=== PATIENT | male | born 1955 | race Caucasian/White ===

== ENCOUNTER 2020-12-14 11:09 | Inpatient (IN) ==
[2020-12-14] MEDS ORDERED: IOPAMIDOL 100 ML BOTTLE IV ONE ×2 (11:10→16:35)
--- NOTE | 2020-12-14 11:29 | Emergency Department Note ---
SOB HPI General Chief Complaint: Shortness of Breath/Dyspnea Stated Complaint: shortness of breath, left rib pain Time Seen by Provider: 12/14/20 11:18 Source: patient, family, RN notes reviewed and old records reviewed Mode of arrival: wheelchair Limitations: no limitations History of Present Illness HPI Narrative: Narrative: MD Complaint: shortness of breath and chest pain Onset (ago): day(s) (4) Context: other (Patient has CLL and is on an experimental chemotherapy) Severity: severe Consistency/Duration: intermittent Improves with: rest Worsens with: lying flat, exertion and movement Known history of: other (CLL) Associated symptoms: Reports chest pain, pain with inspiration, orthopnea, palpitations and nausea/vomiting; Denies fever, cough, wheezing, sputum production, lower extremity pain, polyuria, polydipsia, parasthesias, carpopedal spasm, hemoptysis, diaphoresis, syncope, abdominal pain, rash and sense of impending doom Treatment prior to arrival: none Related Data Home oxygen amount: none Allergies Allergy/AdvReac Type Severity Reaction Status Date / Time No Known Drug Allergies Allergy Verified 12/14/20 11:14 Review of Systems ROS ROS Narrative: Narrative: All systems ED: reviewed and negative except as stated. PFS Narrative Patient History Narrative: Narrative: Medical/Surgical/Family History All Active Problems (Updated 12/14/20 @ 14:02 by Richard Oneil MD) Pneumonia (Acute) Hypoxia (Acute) Chronic lymphocytic leukemia (Acute) Social History Smoking Status: Never smoker Exam Narrative Narrative: Narrative: General Limitations: no limitations General appearance: Present alert and in no apparent distress Head Head: Present atraumatic and normocephalic Eye Eye: Present normal appearance, PERRL and EOMI ENT ENT: Present normal exam and mucous membranes moist Neck Neck: Present normal inspection and full ROM Chest Chest: Present normal inspection; Absent tenderness Respiratory Respiratory: Present decreased breath sounds; Absent respiratory distress Cardiovascular Cardiovascular: Present regular rate and normal rhythm; Absent systolic murmur Adbominal Abdominal: Present soft; Absent distention, tenderness, guarding and rebound Extremities Extremities: Present normal inspection and full ROM; Absent tenderness, pedal edema and pretibial edema Back Back: Present normal inspection; Absent CVA tenderness (R) and CVA tenderness (L) Neurological Neurological: Present alert and oriented X3 Psychiatric Psychiatric: Present normal affect and normal mood Skin Skin: Present warm (WNL); Absent rash Course Vital Signs Vital signs: Vital Signs Temperature 99.4 F H 12/14/20 11:10 Pulse Rate 88 12/14/20 11:10 Respiratory Rate 24 H 12/14/20 11:10 Blood Pressure 175/95 12/14/20 11:10 Pulse Oximetry (%) 85 L 12/14/20 11:10 Temperature 99.4 F H 12/14/20 11:10 Pulse Rate 87 12/14/20 12:46 Respiratory Rate 18 12/14/20 12:31 Blood Pressure 165/102 12/14/20 12:46 Pulse Oximetry (%) 90 12/14/20 12:46 MDM MDM Narrative Medical decision making narrative: Narrative: 65-year-old male with CLL shortness of breath and chest wall pain. Patient has 177.79 WBCs a creatinine normal for receiving IV normal saline the patient received azithromycin and Rocephin after blood cultures and will be admitted for right lower lobe pneumonia. Medical Records Medical records reviewed: Yes I reviewed the patient's medical records. Lab Data Lab results reviewed: Yes I reviewed the patient's lab results. Result diagrams: 12/14/20 11:38 12/14/20 11:38 Labs: Lab Results 12/14/20 12/14/20 12/14/20 Range/Units 11:38 11:38 11:38 WBC 177.7 H* (4.5-11.0) K/mcL RBC 3.83 L (4.50-5.90) M/mcL Hgb 11.6 L (13.5-16.5) g/dL Hct 33.8 L (41.0-55.0) % MCV 88.3 (80.0-100.0) fL MCH 30.3 (26.0-34.0) pg MCHC 34.3 (31.0-36.0) g/dL RDW 17.2 H (11.5-14.5) % Plt Count 58 L (140-440) K/mcL MPV (7.4-10.4) fL Neut % (Auto) 3.0 L (38.0-78.0) % Lymph % (Auto) 96.0 H (15.0-49.0) % Barber % (Auto) 0 L (1.0-12.0) % Eos % (Auto) 0 (0.0-7.0) % Baso % (Auto) 0 (0.0-2.0) % Lymph # (Auto) (1.50-4.80) K/mcL Barber # (Auto) (0.10-0.90) K/mcL Eos # (Auto) (0.00-0.70) K/mcL Baso # (Auto) (0.00-0.20) K/mcL Absolute Neutrophils (1.80-8.00) K/mcL PT 17.9 H (11.9-14.5) sec INR 1.4 H (0.9-1.1) D-Dimer > 20.0 H (0.27-0.5) ug/mL Sodium 139 (133-145) mmol/L Potassium 3.2 L (3.3-5.1) mmol/L Chloride 101 (96-108) mmol/L Carbon Dioxide 25 (22-30) mmol/L Anion Gap 13.0 (8.0-16.0) BUN 8 (8-23) mg/dL Creatinine 1.4 H (0.7-1.2) mg/dL GFR Calculation 51 Glucose 144 H (70-105) mg/dL Calcium 10.3 (8.6-10.4) mg/dL Total Bilirubin 1.2 H (0.1-1.0) mg/dL AST 104 H (<40) U/L ALT 96 H (<40) U/L Alkaline Phosphatase 230 H (39-117) U/L Troponin T (<0.03) ng/mL NT-Pro-B Natriuret Pep 273.1 H (<125.0) pg/mL Total Protein 6.3 (5.9-8.4) gm/dL Albumin 4.4 (3.2-5.2) gm/dL Globulin 1.9 L (2.2-3.7) gm/dL Albumin/Globulin Ratio 2.3 (1.0-2.3) 12/14/ Range/Units 11:38 WBC (4.5-11.0) K/mcL RBC (4.50-5.90) M/mcL Hgb (13.5-16.5) g/dL Hct (41.0-55.0) % MCV (80.0-100.0) fL MCH (26.0-34.0) pg MCHC (31.0-36.0) g/dL RDW (11.5-14.5) % Plt Count (140-440) K/mcL MPV (7.4-10.4) fL Neut % (Auto) (38.0-78.0) % Lymph % (Auto) (15.0-49.0) % Barber % (Auto) (1.0-12.0) % Eos % (Auto) (0.0-7.0) % Baso % (Auto) (0.0-2.0) % Lymph # (Auto) (1.50-4.80) K/mcL Barber # (Auto) (0.10-0.90) K/mcL Eos # (Auto) (0.00-0.70) K/mcL Baso # (Auto) (0.00-0.20) K/mcL Absolute Neutrophils (1.80-8.00) K/mcL PT (11.9-14.5) sec INR (0.9-1.1) D-Dimer (0.27-0.5) ug/mL Sodium (133-145) mmol/L Potassium (3.3-5.1) mmol/L Chloride (96-108) mmol/L Carbon Dioxide (22-30) mmol/L Anion Gap (8.0-16.0) BUN (8-23) mg/dL Creatinine (0.7-1.2) mg/dL GFR Calculation Glucose (70-105) mg/dL Calcium (8.6-10.4) mg/dL Total Bilirubin (0.1-1.0) mg/dL AST (<40) U/L ALT (<40) U/L Alkaline Phosphatase (39-117) U/L Troponin T 0.02 (<0.03) ng/mL NT-Pro-B Natriuret Pep (<125.0) pg/mL Total Protein (5.9-8.4) gm/dL Albumin (3.2-5.2) gm/dL Globulin (2.2-3.7) gm/dL Albumin/Globulin Ratio (1.0-2.3) ED POC Tests ED POC Tests: RENEE - SARS Antigen Negative Radiology Data Radiology results reviewed: Yes I reviewed the patient's radiology results. Radiology results narrative: Chest CT shows right lower lobe infiltrate EKG Data EKG #1: EKG attestation: Yes I reviewed and interpreted this EKG. EKG shows normal: sinus rhythm Rate: normal (87) Rhythm: NSR Jamison/QRS: normal Heart block present: None ST segment elevation in: None ST segment depression in: None Q waves: None T wave inversions noted in: None Hyperacute T waves: None QTc: normal QRS morphology: Present normal Interpretation: normal EKG Pulse Oximetry Data Pulse Ox %: 85 Interpretation: Hypoxia on room air Discharge Plan Patient/Caregiver Discharge Instructions Pt seen by [employer]/PA only: No Clinical Impression: Hypoxia, Chronic lymphocytic leukemia Pneumonia Qualifiers: Pneumonia type: due to unspecified organism Laterality: right Lung location: lower lobe of lung Qualified Code(s): J18.9 - Pneumonia, unspecified organism Patient Disposition: Xfer As Inpt ([facility]) Condition: Fair Follow up with: Provider,Other [Primary Care Provider] -
--- NOTE | 2020-12-14 12:28 | XRay Report ---
INDICATION: dyspnea TECHNIQUE: AP portable upright chest x-ray COMPARISON: None FINDINGS: Lungs:Lungs are negative. No focal pulmonary parenchymal infiltrate or mass Heart, vascular:No significant cardiomegaly. Pulmonary vascularity is normal. No pulmonary edema or pulmonary congestion Mediastinum, saige:No mediastinal widening. No hilar mass Pleura:No pleural fluid. No pleural-based mass or calcification Skeletal:Negative. IMPRESSION: Negative AP chest x-ray Interpreted and Authenticated by: Mg Carlson 12/14/20
[2020-12-14 12:38] LABS: ALT/SGPT 96 U/L (<40); AST/SGOT 104 U/L (<40); Albumin 4.4 gm/dL (3.2-5.2); Albumin/Globulin Ratio 2.3 (1.0-2.3); Alkaline Phosphatase 230 U/L (39-117); Bilirubin,Total 1.2 mg/dL (0.1-1.0); Blood Urea Nitrogen 8 mg/dL (8-23); Calcium 10.3 mg/dL (8.6-10.4); Carbon Dioxide 25 mmol/L (22-30); Chloride 101 mmol/L (96-108); Globulin 1.9 gm/dL (2.2-3.7); Glomerular Filtration Rate 51; Glucose 144 mg/dL (70-105)
[2020-12-14 12:53] LABS: proBNP 273.1 pg/mL (<125.0)
[2020-12-14 13:09] LABS: Basophils % (Auto) 0 % (0.0-2.0); Eosinophils % (Auto) 0 % (0.0-7.0); Hematocrit 33.8 % (41.0-55.0); Hemoglobin 11.6 g/dL (13.5-16.5); Mean Cell Volume 88.3 fL (80.0-100.0); Mean Corpuscular HGB Conc 34.3 g/dL (31.0-36.0); Monocytes % (Auto) 0 % (1.0-12.0); Red Cell Distribution Width 17.2 % (11.5-14.5); WBC 177.7 K/mcL (4.5-11.0)
[2020-12-14 13:10] LABS: Platelet Count 58 K/mcL (140-440)
[2020-12-14 13:11] LABS: RBC 3.83 M/mcL (4.50-5.90)
[2020-12-14 13:14] LABS: INR 1.4 (0.9-1.1); Prothrombin Time 17.9 sec (11.9-14.5)
--- NOTE | 2020-12-14 13:24 | Cat Scan Report ---
INDICATION: Chest pain x 1 week COMPARISON: Chest x-ray dated 12/14/2020 TECHNIQUE: Axial images obtained through the chest. 60ml Isovue 370 injected intravenously, and scanning was performed during pulmonary arterial phase. Sagittally and coronally reformatted images were obtained. MIP reformatted images. FINDINGS: Lungs:There is right lower lobe infiltrate. This is within the azygoesophageal recess. Findings are consistent with pneumonia. There is no focal pulmonary parenchymal mass. There is mild bibasilar density consistent with dependent atelectasis. Mediastinum, vascular:Main pulmonary artery, right pulmonary artery, left pulmonary artery are negative. No intraluminal filling defects. No lobar, segmental, or subsegmental emboli. Thoracic aorta is negative. No aneurysmal dilatation No pathologic mediastinal or hilar adenopathy Heart:No cardiomegaly. No pericardial effusion. Pleura:No significant pleural effusion. No pleural mass or calcification Axilla, supraclavicular regions, chest wall:Bilateral axillary lymph nodes. These appear physiologic on the left. These are indeterminate on the right. Largest right axillary lymph node measures 18 mm. Musculoskeletal:No thoracic compression fractures. Sternum and ribs are negative Upper Abdomen:There is splenomegaly. Spleen measures 16 cm in AP dimension. Craniocaudal dimension is not measured as entire spleen is not included on this examination. There is a 13 mm low-density abnormality in the upper pole of the spleen. This is nonspecific. Hematologic malignancy is possible IMPRESSION: 1. Negative pulmonary CTA 2. Right lower lobe infiltrate within the azygoesophageal recess 3. Nonspecific right axillary lymph nodes. 4. Splenomegaly. Low density lesion in the upper pole of the spleen The exam was performed using radiation dose optimization techniques including, but not limited to, automated exposure control, adjustment of the mA and/or kV according to patient size and use of iterative reconstruction technique. Interpreted and Authenticated by: Mg Carlson 12/14/20
[2020-12-14] MEDS ORDERED: AZITHROMYCIN 500 MG in DEXTROSE 5% IN WATER 250 ML IV ONE (13:53)
[2020-12-14] MEDS ORDERED: cefTRIAXone 1 GM VIAL IV ONE (13:53)
[2020-12-14] MEDS ORDERED: morphine 4 MG/ML VIAL IV ONE (13:59)
[2020-12-14] MEDS ORDERED: ONDANSETRON 4 MG/2 ML VIAL IV ONE (13:59)
[2020-12-14] MEDS ORDERED: guaiFENesin/DEXTROMETHORPHAN ORAL SOL PO PRN ×2 (15:25→16:35)
[2020-12-14] MEDS ORDERED: 0.9 % SODIUM CHLORIDE 2,000 ML IV ONE (15:30)
--- NOTE | 2020-12-14 15:36 | Internal Med History&Physical ---
HPI History of Present Illness Patient information: Note initiated : 12/14/20 at 3:30 pm Service Date, if different from initiated Date: [] Patient: Adonay Hdez 65 y/o M admitted on for shortness of breath, left rib pain. Chief Complaint: [shortness of breath] History of present illness: Mr. Hdez is a 65 year old M history of CLL and essential hypertension presenting with 4-day history of shortness of breath. Last episode of pneumonia was 1 and half years ago. Patient denies any recent travel or sick contact. Over the past 4 days, patient has gradual onset, gradually worsening shortness of breath. Patient have known productive cough. Patient is also committing of respiratory wheezings. Patient denies any fever or shaking chills. Patient is committing of general body weakness as well as decreased appetite over the same period of time. Patient is also coming off left upper quadrant abdominal pain, mild to moderate, with radiations to the left upper back. Denies any alleviating or exacerbating factors. Constitutional Constitutional: Present fatigue and weakness; Absent chills, excessive sweating and fever(s) EENT Eyes: Absent blurry vision, change in vision, loss of vision and other visual disturbances Ears: Absent decreased hearing and tinnitus Nose, mouth and throat: Absent abnormal hearing, dry mouth, headache(s), nasal congestion and sore throat Cardiovascular Cardiovascular: Absent chest pain, chest pain at rest, edema, irregular heart rhythm and palpatations Respiratory Respiratory: Present cough, dyspnea and wheezing; Absent excessive phlegm production Gastrointestinal Gastrointestinal: Absent abdominal pain, constipation, diarrhea, nausea and vomiting Musculoskeletal Musculoskeletal: Absent back pain, deformity, limited range of motion, muscle cramps, muscle weakness and numbness Integumentary Integumentary: Absent lesions, rash and wounds Neurological Neurological: Absent focal weakness, headache(s) and numbness Psychiatric Psychiatric: Absent anxiety, depression and hallucinations PFSH PFSH All Active Problems (Updated 12/14/20 @ 15:46 by Ranjit Hathaway MD) Stage 1 acute kidney injury (Acute) Anemia, normocytic normochromic (Acute) Lesion of spleen (Acute) Essential (primary) hypertension (Acute) Pneumonia (Acute) Hypoxia (Acute) Chronic lymphocytic leukemia (Acute) MEDS/ALLERGIES Home Medications and Allergies Allergies Allergy/AdvReac Type Severity Reaction Status Date / Time No Known Drug Allergies Allergy Verified 12/14/20 11:14 EXAM Constitutional Vitals: Temp Pulse Resp BP Pulse Ox 37.4 C H 95 H 19 141/82 90 12/14/20 11:10 12/14/20 14:16 12/14/20 14:22 12/14/20 14:16 12/14/20 14:16 General appearance: cooperative and no acute distress Head Head exam: Present atraumatic and normocephalic Eye Eye exam: Present EOMI and PERRL ENT ENT exam: Present mucous membranes moist, normal exam and normal external ear exam Neck Neck exam: Present normal inspection; Absent lymphadenopathy, tenderness and thyromegaly Respiratory Respiratory exam: Present decreased breath sounds and respiratory distress; Absent accessory muscle use and wheezes Cardiovascular Cardiovascular exam: Present normal rate and rhythm; Absent JVD GI/Abdominal GI/Abdominal exam: Present normal bowel sounds, soft and tenderness; Absent organomegaly Rectal Rectal exam: Present deferred Extremities Exam Extremities exam: Present full ROM, normal capillary refill and normal inspection; Absent tenderness Neurological Exam Neurological exam: Present alert, CN II-XII intact and oriented X3; Absent motor sensory deficit Psychiatric Psychiatric exam: Present normal affect and normal mood; Absent anxious and depressed Skin Skin exam: Present dry and intact DATA Data Completed and Pending Labs: Labs from last 24 hours 12/14/20 12/14/20 12/14/20 14:30 11:38 11:38 WBC RBC Hgb Hct MCV MCH MCHC RDW Plt Count MPV Neut % (Auto) Lymph % (Auto) Pitt % (Auto) Eos % (Auto) Baso % (Auto) Lymph # (Auto) Pitt # (Auto) Eos # (Auto) Baso # (Auto) Absolute Neutrophils PT INR D-Dimer VBG Lactic Acid Pending Sodium 139 Potassium 3.2 L Chloride 101 Carbon Dioxide 25 Anion Gap 13.0 BUN 8 Creatinine 1.4 H GFR Calculation 51 Glucose 144 H Calcium 10.3 Total Bilirubin 1.2 H AST 104 H ALT 96 H Alkaline Phosphatase 230 H Troponin T 0.02 NT-Pro-B Natriuret Pep 273.1 H Total Protein 6.3 Albumin 4.4 Globulin 1.9 L Albumin/Globulin Ratio 2.3 12/14/20 12/14/20 11:38 11:38 WBC 177.7 H* RBC 3.83 L Hgb 11.6 L Hct 33.8 L MCV 88.3 MCH 30.3 MCHC 34.3 RDW 17.2 H Plt Count 58 L MPV Neut % (Auto) 3.0 L Lymph % (Auto) 96.0 H Pitt % (Auto) 0 L Eos % (Auto) 0 Baso % (Auto) 0 Lymph # (Auto) Pitt # (Auto) Eos # (Auto) Baso # (Auto) Absolute Neutrophils PT 17.9 H INR 1.4 H D-Dimer > 20.0 H VBG Lactic Acid Sodium Potassium Chloride Carbon Dioxide Anion Gap BUN Creatinine GFR Calculation Glucose Calcium Total Bilirubin AST ALT Alkaline Phosphatase Troponin T NT-Pro-B Natriuret Pep Total Protein Albumin Globulin Albumin/Globulin Ratio A/P Assessment and plan (1) Chronic lymphocytic leukemia: Status: Acute (2) Pneumonia: Status: Acute Qualifiers: Laterality: right Lung location: lower lobe of lung Pneumonia type: due to unspecified organism Qualified Code(s): J18.9 - Pneumonia, unspecified organism (3) Hypoxia: Status: Acute (4) Essential (primary) hypertension: Status: Acute (5) Lesion of spleen: Status: Acute (6) Anemia, normocytic normochromic: Status: Acute (7) Stage 1 acute kidney injury: Status: Acute Narrative A/P Narrative: Assessment and Plans: 1. Right lower lobe pneumonia, community acquired: Admit to inpatient med surg telemetry CoVID PCR test to rule out commitment CoVID pneumonia. 2L NS bolus Procalcitonin Serial lactic acid Blood culture X2 Supplemental oxygen via nasal cannula titrate to achieve >=92% sp02 cbc w./ auto diff in the AM to trend WBC Rocephin Zithromax Tylenol PRN fever Robitussin DM PRN cough 2. h/o CLL: Verify and continue chemotherapy 3. Splenomegaly and spleen lesion: As visualized by CT angiogram of the chest f/u MRI abdomen w/ contrast to better delineate the lesion Ibuprofen PRN mild pain Oxycodone PRN moderate pain Morphine IV PRN severe pain 4. anemia, normocytic normochromic: Likely associated with h/o CLL, see #2 cbc w/ auto diff in the AM, trend H/H; transfuse pRBC if hemoglobin <7.0, active bleeding, or symptomatic 5. h/o essential HTN: Currently hypertensive Resume oral antihypertensives from home regimen 6. Stage 1 Acute kidney injury: 2L NS bolus in the ED Avoid nephrotoxic agents Repeat CMP in the AM to trend kidney functions GI ppx: not currently indicated DVT ppx: SCDs Code status: Full Prognosis: guarded Disposition: inpatient med surg telemetry Time Spent With Patient Time: Total time spent is greater than 50% in coordination of care (as documented) at patient's floor/unit and/or counseling patient: Total time spent with greater than 50% in coordination of care (as documented) at patient's floor/unit and/or counseling patient:: 25 - 35 minutes
[2020-12-14] MEDS ORDERED: oxyCODONE HCL 5 MG TABLET PO PRN (16:35)
[2020-12-14] MEDS ORDERED: IPRATROPIUM/ALBUTEROL 3 ML AMPUL.NEB NEB PRN (16:35)
[2020-12-14] MEDS ORDERED: IBUPROFEN 600 MG TABLET PO PRN (16:35)
[2020-12-14] MEDS ORDERED: AZITHROMYCIN 500 MG in DEXTROSE 5% IN WATER 250 ML IV SCH (16:35)
[2020-12-14] MEDS ORDERED: ACETAMINOPHEN 325 MG TABLET PO PRN (16:35)
[2020-12-14] MEDS ORDERED: cefTRIAXone 1 GM in DEXTROSE 5% IN WATER 50 ML IV SCH (16:35)
[2020-12-14] MEDS ORDERED: ONDANSETRON 4 MG/2 ML VIAL IV PRN (16:35)
[2020-12-14] MEDS ORDERED: morphine 4 MG/ML VIAL IV PRN (16:35)
[2020-12-14] MEDS ORDERED: traZODone HCL 50 MG TABLET PO PRN (16:35)
--- NOTE | 2020-12-14 17:17 | EKG ---
[facility] Test Date: 2020-12-14 Pat Name: Adonay Hdez Department: ED Room: Gender: Male [employer]: : 1955 Requested By: Richard Oneil Order Number: [id number] Reading MD: Yunior Yu M.D. Measurements Intervals Temperance Rate: 87 P: 53 MS: 144 QRS: 2 QRSD: 87 T: 50 QT: 365 QTc: 439 Interpretive Statements Sinus rhythm NO PRIOR TRACING FOR COMPARISON NORMAL TRACING Electronically Signed On 12-14-2020 17:17:23 PDT by Yunior Yu M.D. /store/[email or web address]/[id number]
[2020-12-14] MEDS: 0.9 % SODIUM CHLORIDE 1,000 ML IV SCH (18:20)
[2020-12-14] MEDS: 0.9 % SODIUM CHLORIDE 10 ML SYRINGE IV SCH (20:12)
[2020-12-14] MEDS: DOCUSATE SODIUM 100 MG CAPSULE PO SCH (20:12)
[2020-12-14] MEDS: SENNOSIDES 1 TABLET PO SCH (20:12)
[2020-12-14] MEDS ORDERED: NON FORMULARY MEDICATION 1 DOSE MISCELL PO SCH (21:00)
[2020-12-15] MEDS: 0.9 % SODIUM CHLORIDE 1,000 ML IV SCH ×5 (02:27→22:00)
[2020-12-15] MEDS: 0.9 % SODIUM CHLORIDE 10 ML SYRINGE IV SCH ×3 (05:46→20:33)
[2020-12-15 08:25] LABS: Basophils # (Auto) 0 K/mcL (0.00-0.20); Basophils % (Auto) 0 % (0.0-2.0); Hematocrit 29.7 % (41.0-55.0); Hemoglobin 9.9 g/dL (13.5-16.5); Mean Cell Volume 90.8 fL (80.0-100.0); Mean Corpuscular HGB Conc 33.3 g/dL (31.0-36.0); Platelet Count 49 K/mcL (140-440); RBC 3.27 M/mcL (4.50-5.90); Red Cell Distribution Width 17.8 % (11.5-14.5); WBC 240.3 K/mcL (4.5-11.0)
[2020-12-15 08:41] LABS: ALT/SGPT 81 U/L (<40); AST/SGOT 87 U/L (<40); Albumin 3.8 gm/dL (3.2-5.2); Albumin/Globulin Ratio 2.1 (1.0-2.3); Alkaline Phosphatase 190 U/L (39-117); Bilirubin,Total 1.3 mg/dL (0.1-1.0); Blood Urea Nitrogen 8 mg/dL (8-23); Calcium 9.6 mg/dL (8.6-10.4); Carbon Dioxide 29 mmol/L (22-30); Chloride 105 mmol/L (96-108); Globulin 1.8 gm/dL (2.2-3.7); Glomerular Filtration Rate 51; Glucose 109 mg/dL (70-105)
[2020-12-15] MEDS ORDERED: AZITHROMYCIN 500 MG in DEXTROSE 5% IN WATER 250 ML IV SCH (09:00)
[2020-12-15] MEDS ORDERED: cefTRIAXone 1 GM VIAL IV SCH (09:00)
[2020-12-15] MEDS: ZANUBRUTINIB 80 MG PO SCH ×2 (09:09→20:30)
[2020-12-15] MEDS ORDERED: MAGNESIUM SULFATE 8.12 MEQ/2 ML VIAL IV ONE (10:06)
[2020-12-15] MEDS ORDERED: ACYCLOVIR 400 MG TABLET PO PRN (10:07)
--- NOTE | 2020-12-15 10:17 | Internal Med Progress Note ---
SUBJECTIVE Subjective Patient information: Note initiated : 12/15/20 at 10:09 am Service Date, if different from initiated Date: [] Patient: Adonay Hdez a 65 y/o M admitted on 12/14/20 for shortness of breath, left rib pain. Chief Complaint: [shortness of breath] History of present illness: Mr. Hdez is a 65 year old M history of CLL and essential hypertension presenting with 4-day history of shortness of breath. Last episode of pneumonia was 1 and half years ago. Patient denies any recent travel or sick contact. Over the past 4 days, patient has gradual onset, gradually worsening shortness of breath. Patient have known productive cough. Patient is also committing of respiratory wheezings. Patient denies any fever or shaking chills. Patient is committing of general body weakness as well as decreased appetite over the same period of time. Patient is also coming off left upper quadrant abdominal pain, mild to moderate, with radiations to the left upper back. Denies any alleviating or exacerbating factors. 12/15/20: Afebrile overnight. Blood cultures no growth to date. CoVID PCR negative. Improving SOB. Productive cough with govea sputum with blood tinge. Denies fever or chills. Mild general body weakness. Constitutional Vitals: Vital Signs Temp Pulse Resp BP Pulse Ox 37.2 C 103 H 16 153/84 91 12/15/20 06:59 12/15/20 06:59 12/15/20 06:59 12/15/20 06:59 12/15/20 09:13 Period Temp Pulse Resp BP Sys/Nice Pulse Ox Last 24 Hr 36.3 C-37.4 C 86-103 14-24 124-177/68-114 85-94 Intake and Output 12/14/20 12/15/20 12/15/20 21:59 05:59 13:59 Intake Total 1223 1000 Balance 1223 1000 Weight 113.988 kg Intake & Output: Intake & Output 12/14/20 12/15/20 12/15/20 21:59 05:59 13:59 Intake Total 1223 1000 Balance 1223 1000 Weight 113.988 kg Intake: IV 983 1000 Sodium Chloride 0.9% 1,000 ml @ 733 1000 100 mls/hr IV .Q10H [facility] Rx#: [id number] Zithromax 500 mg In Dextrose 5% 250 in Water 250 ml @ 250 mls/hr IV ONCE ONE Rx#:[id number] Oral 240 Other: Meal Dinner Percent of Meal Consumed 75% Feeding Ability Assist with Tray Set Up # Voids 1 General appearance: cooperative and no acute distress Head Head exam: Present atraumatic and normocephalic Eye Eye exam: Present EOMI and PERRL ENT ENT exam: Present mucous membranes moist, normal exam and normal external ear exam Additional comments: Nasal cannula in place. Neck Neck exam: Present normal inspection; Absent lymphadenopathy, tenderness and thyromegaly Respiratory Respiratory exam: Present rhonchi; Absent accessory muscle use, respiratory distress and wheezes Cardiovascular Cardiovascular exam: Present normal rate and rhythm; Absent JVD GI/Abdominal GI/Abdominal exam: Present normal bowel sounds and soft; Absent organomegaly and tenderness Rectal Rectal exam: Present deferred Extremities Exam Extremities exam: Present full ROM, normal capillary refill and normal inspection; Absent tenderness Neurological Exam Neurological exam: Present alert, CN II-XII intact and oriented X3; Absent motor sensory deficit Psychiatric Psychiatric exam: Present normal affect and normal mood; Absent anxious and depressed Skin Skin exam: Present dry and intact OBJ DATA Labs CBC & Chem 7: 12/15/20 05:04 12/15/20 05:04 Labs: Abnormal Lab Results 12/15/20 12/15/20 12/14/20 05:04 05:04 11:38 WBC 240.3 H* RBC 3.27 L Hgb 9.9 L Hct 29.7 L RDW 17.8 H Plt Count 49 L* Neut % (Auto) 2.0 L Lymph % (Auto) 96.0 H [place] % (Auto) Lymph # (Auto) 230.70 H [place] # (Auto) 2.40 H Eos # (Auto) 2.40 H PT INR D-Dimer Potassium 2.0 L* Creatinine 1.4 H Glucose 109 H Magnesium 1.5 L Total Bilirubin 1.3 H AST 87 H ALT 81 H Alkaline Phosphatase 190 H NT-Pro-B Natriuret Pep Total Protein 5.6 L Globulin 1.8 L Procalcitonin 0.46 H 12/14/20 12/14/20 12/14/20 11:38 11:38 11:38 WBC 177.7 H* RBC 3.83 L Hgb 11.6 L Hct 33.8 L RDW 17.2 H Plt Count 58 L Neut % (Auto) 3.0 L Lymph % (Auto) 96.0 H [place] % (Auto) 0 L Lymph # (Auto) [place] # (Auto) Eos # (Auto) PT 17.9 H INR 1.4 H D-Dimer > 20.0 H Potassium 3.2 L Creatinine 1.4 H Glucose 144 H Magnesium Total Bilirubin 1.2 H AST 104 H ALT 96 H Alkaline Phosphatase 230 H NT-Pro-B Natriuret Pep 273.1 H Total Protein Globulin 1.9 L Procalcitonin Meds: Medications Acetaminophen (Acetaminophen 325 Mg Tablet) 650 mg PO Q6HP PRN; Protocol PRN Reason: Per Pain Protocol/Fever > 101 Acyclovir (Acyclovir 400 Mg Tablet) 400 mg PO TID PRN; Protocol PRN Reason: Cold Sores Albuterol/Ipratropium (Ipratropium/Albuterol 3 Ml Ampul.Neb) 3 ml NEB Q4HRT PRN PRN Reason: Wheezing Allopurinol (Allopurinol 300 Mg Tablet) 300 mg PO DAILY MICHAEL Ceftriaxone Sodium (Ceftriaxone 1 Gm Vial) 1 gm IV DAILY MICHAEL; Protocol Docusate Sodium (Docusate Sodium 100 Mg Capsule) 100 mg PO BID MICHAEL Last Admin: 12/14/20 20:12 Dose: Not Given Documented by: Finasteride (Finasteride 5 Mg Tablet) 5 mg PO QDAY MICHAEL Guaifenesin (Guaifenesin/Dextromethorphan Oral Kelli) 10 ml PO Q4HP PRN PRN Reason: Cough Azithromycin 500 mg/ Dextrose 250 mls @ 250 mls/hr IV DAILY MICHAEL; Protocol Stop: 12/16/20 09:59 Sodium Chloride (Sodium Chloride 0.9%) 1,000 mls @ 100 mls/hr IV .Q10H MICHAEL Last Admin: 12/15/20 04:28 Dose: 100 mls/hr Documented by: Potassium Chloride 40 meq/ (Dextrose) 520 mls @ 130 mls/hr IV ONCE ONE Stop: 12/15/20 14:59 Magnesium Sulfate 8.12 meq/ (Dextrose) 52 mls @ 52 mls/hr IV ONCE ONE Stop: 12/15/20 11:59 Ibuprofen (Ibuprofen 600 Mg Tablet) 600 mg PO QIDP PRN; Protocol PRN Reason: Per Pain Protocol/Fever > 101 Last Admin: 12/14/20 23:14 Dose: 600 mg Documented by: Morphine Sulfate (Morphine 4 Mg/Ml Vial) 4 mg IV Q4HP PRN; Protocol PRN Reason: Per Pain Protocol Non-Formulary Medication (Lisinopril) 40 mg PO DAILY [facility] Non-Formulary Medication (Zanubrutinib) 160 mg PO BID [facility] Ondansetron HCl (Ondansetron 4 Mg/2 Ml Vial) 4 mg IV Q6HP PRN PRN Reason: Nausea And Vomiting Oxycodone HCl (Oxycodone Hcl 5 Mg Tablet) 5 mg PO Q4HP PRN; Protocol PRN Reason: Per Pain Protocol Zanubrutinib 80 Mg (Capsule) 1 dose PO BID [facility] Last Admin: 12/15/20 09:09 Dose: 1 dose Documented by: Senna (Sennosides 1 Tablet) 2 tab PO HS [facility] Last Admin: 12/14/20 20:12 Dose: Not Given Documented by: Sodium Chloride (0.9 % Sodium Chloride 10 Ml Syringe) 10 ml IV Q8 [facility] Last Admin: 12/15/20 05:46 Dose: Not Given Documented by: Trazodone HCl (Trazodone Hcl 50 Mg Tablet) 50 mg PO HSP PRN PRN Reason: Insomnia A/P Assessment and plan (1) Chronic lymphocytic leukemia: Status: Acute (2) Hypoxia: Status: Acute (3) Pneumonia: Status: Acute Qualifiers: Laterality: right Lung location: lower lobe of lung Pneumonia type: due to unspecified organism Qualified Code(s): J18.9 - Pneumonia, unspecified organism (4) Essential (primary) hypertension: Status: Acute (5) Lesion of spleen: Status: Acute (6) Anemia, normocytic normochromic: Status: Acute (7) Stage 1 acute kidney injury: Status: Acute (8) Hypokalemia: Status: Acute (9) Hypomagnesemia: Status: Acute Narrative A/P Narrative: 1. Right lower lobe pneumonia, community acquired: Admit to inpatient med surg telemetry CoVID PCR NEGATIVE 2L NS bolus Procalcitonin 0.46 elevated, suggesting underlying active infection, likely pneumonia Serial lactic acid Blood culture X2, no growth to date Supplemental oxygen via nasal cannula titrate to achieve >=92% sp02 cbc w./ auto diff in the AM to trend WBC Rocephin Zithromax Tylenol PRN fever Robitussin DM PRN cough 2. h/o CLL: Verify and continue chemotherapy Zanubrutinib Will talk to oncologist regarding treatment of CLL in face of acute infection 3. Splenomegaly and spleen lesion: As visualized by CT angiogram of the chest f/u MRI abdomen w/ contrast to better delineate the lesion Ibuprofen PRN mild pain Oxycodone PRN moderate pain Morphine IV PRN severe pain 4. anemia, normocytic normochromic: Likely associated with h/o CLL, see #2 cbc w/ auto diff in the AM, trend H/H; transfuse pRBC if hemoglobin <7.0, active bleeding, or symptomatic 5. h/o essential HTN: Currently hypertensive Resume oral antihypertensives from home regimen 6. Stage 1 Acute kidney injury: 2L NS bolus in the ED Avoid nephrotoxic agents Repeat CMP in the AM to trend kidney functions 7. Hypokalemia/hypomagnesemia: Potassium and Magnesium IV replacement Repeat serum potassium level this afternoon Repeat CMP and serum Mg level every morning and repeat replacement as needed GI ppx: not currently indicated DVT ppx: SCDs Code status: Full Prognosis: guarded Disposition: inpatient med surg telemetry Time Spent With Patient Time: Total time spent is greater than 50% in coordination of care (as documented) at patient's floor/unit and/or counseling patient: Total time spent with greater than 50% in coordination of care (as documented) at patient's floor/unit and/or counseling patient:: 15 - 24 minutes QUALITY VTE Deep Vein Thrombosis/Pulmonary Embolism Present on Admission: No
[2020-12-15] MEDS ORDERED: POTASSIUM CHLORIDE 40 MEQ in DEXTROSE 5% IN WATER 500 ML IV ONE (11:00)
[2020-12-15] MEDS ORDERED: MAGNESIUM SULFATE 8.12 MEQ in DEXTROSE 5% IN WATER 50 ML IV ONE (11:00)
[2020-12-15] MEDS ORDERED: LISINOPRIL 20 MG TABLET PO ONE (12:38)
[2020-12-15] MEDS ORDERED: ALLOPURINOL 300 MG TABLET PO ONE (12:38)
[2020-12-15] MEDS: DOCUSATE SODIUM 100 MG CAPSULE PO SCH ×2 (14:37→20:30)
[2020-12-15] MEDS: SENNOSIDES 1 TABLET PO SCH ×2 (14:39→20:30)
[2020-12-15] MEDS ORDERED: POLYETHYLENE GLYCOL 3350 17 GM PACKET PO PRN (20:03)
[2020-12-15] MEDS ORDERED: ZANUBRUTINIB 80 MG PO SCH (21:00)
[2020-12-16] MEDS: 0.9 % SODIUM CHLORIDE 10 ML SYRINGE IV SCH (04:51)
[2020-12-16] MEDS: 0.9 % SODIUM CHLORIDE 1,000 ML IV SCH (04:51)
--- NOTE | 2020-12-16 07:35 | XRay Report ---
INDICATION: r/o PNA vs fluid overload TECHNIQUE: AP portable semiupright chest x-ray COMPARISON: Previous chest x-ray dated 12/14/2020. Previous CT scan dated 12/14/2020 FINDINGS: Lungs:No pulmonary parenchymal consolidation. No pulmonary parenchymal mass. CT scan demonstrated a focal infiltrate in the right lower lobe which is not apparent on plain radiograph. Pneumonia remains possible Heart, vascular:There is mild cardiomegaly. Pulmonary vascularity is prominent. There is peribronchial thickening. Findings may be due to interstitial pulmonary edema. Mediastinum, saige:No mediastinal widening. No hilar mass Pleura:No pleural fluid. No pleural-based mass or calcification Skeletal:Negative. IMPRESSION: 1. Mild cardiomegaly. Prominent vascularity and possible interstitial edema 2. No parenchymal consolidation Interpreted and Authenticated by: Mg Carlson 12/16/20
[2020-12-16] MEDS ORDERED: VANCOMYCIN PER PHARMACY IV SCH ×2 (07:37→08:10)
[2020-12-16] MEDS ORDERED: PIPERACILLIN SODIUM/TAZOBACTAM 3.375 GM in DEXTROSE 5% IN WATER 50 ML IV SCH (07:45)
--- NOTE | 2020-12-16 07:57 | Internal Med Progress Note ---
SUBJECTIVE Subjective Patient information: Note initiated : 12/16/20 at 7:56 am Service Date, if different from initiated Date: [] Patient: Adonay Hdez 65 y/o M admitted on 12/14/20 for shortness of breath, left rib pain. Chief Complaint: [shortness of breath] History of present illness: Mr. Hdez is a 65 year old M history of CLL and essential hypertension presenting with 4-day history of shortness of breath. Last episode of pneumonia was 1 and half years ago. Patient denies any recent travel or sick contact. Over the past 4 days, patient has gradual onset, gradually worsening shortness of breath. Patient have known productive cough. Patient is also committing of respiratory wheezings. Patient denies any fever or shaking chills. Patient is committing of general body weakness as well as decreased appetite over the same period of time. Patient is also coming off left upper quadrant abdominal pain, mild to moderate, with radiations to the left upper back. Denies any alleviating or exacerbating factors. 12/15/20: Afebrile overnight. Blood cultures no growth to date. CoVID PCR negative. Improving SOB. Productive cough with govea sputum with blood tinge. Denies fever or chills. Mild general body weakness. 12/16: Afebrile overnight. Blood cultures no growth to date. Patient is showing increased work of breathing. Diaphoresis. Showing abdominal breathing pattern. Subjective not obtained due to clinical situations. Constitutional Vitals: Vital Signs Temp Pulse Resp BP Pulse Ox 36.4 C 108 H 22 167/86 92 12/16/20 06:56 12/16/20 06:56 12/16/20 06:56 12/16/20 06:56 12/16/20 06:56 Period Temp Pulse Resp BP Sys/Nice Pulse Ox Last 24 Hr 36.4 C-37.3 C 96-112 16-24 142-167/75-99 90-92 Intake and Output 12/15/20 12/16/20 12/16/20 21:59 05:59 13:59 Intake Total 1971 1276 Output Total 300 Balance 1672 1277 Weight 116.12 kg Intake & Output: Intake & Output 12/15/20 12/16/20 12/16/20 21:59 05:59 13:59 Intake Total 1971 1277 Output Total 300 Balance 1672 1277 Weight 116.12 kg Intake: IV 1572 977 Sodium Chloride 0.9% 1,000 ml @ 1000 977 100 mls/hr IV .Q10H [facility] Rx#: [id number] Magnesium Sulfate 8.12 Meq In 52 Dextrose 5% in Water 50 ml @ 52 mls/hr IV ONCE ONE Rx#: [id number] Potassium Chloride 40 Meq In 520 Dextrose 5% in Water 500 ml @ 130 mls/hr IV ONCE ONE Rx#: [id number] Oral 400 300 Output: Void Amount 300 Other: Meal Lunch Percent of Meal Consumed 100% Feeding Ability Independent General appearance: cooperative and severe distress Head Head exam: Present atraumatic and normocephalic Eye Eye exam: Present EOMI and PERRL ENT ENT exam: Present mucous membranes moist, normal exam and normal external ear exam Additional comments: High flow oxygen in place. Neck Neck exam: Present normal inspection; Absent lymphadenopathy, tenderness and thyromegaly Respiratory Respiratory exam: Absent accessory muscle use, respiratory distress and wheezes Additional comments: Crackles in bilateral lung apexes Abdominal breathing pattern Cardiovascular Cardiovascular exam: Present normal rate and rhythm; Absent JVD GI/Abdominal GI/Abdominal exam: Present normal bowel sounds and soft; Absent organomegaly and tenderness Additional comments: Abdominal breathing pattern Rectal Rectal exam: Present deferred Extremities Exam Extremities exam: Present full ROM, normal capillary refill and normal inspection; Absent tenderness Neurological Exam Neurological exam: Present alert, CN II-XII intact and oriented X3; Absent motor sensory deficit Psychiatric Psychiatric exam: Present normal affect and normal mood; Absent anxious and depressed Skin Skin exam: Present intact Additional comments: wet skin OBJ DATA Labs CBC & Chem 7: 12/15/20 05:04 12/15/20 17:00 Labs: Abnormal Lab Results 12/15/20 12/15/20 12/15/20 17:00 05:04 05:04 WBC 240.3 H* RBC 3.27 L Hgb 9.9 L Hct 29.7 L RDW 17.8 H Plt Count 49 L* Neut % (Auto) 2.0 L Lymph % (Auto) 96.0 H [place] % (Auto) Lymph # (Auto) 230.70 H [place] # (Auto) 2.40 H Eos # (Auto) 2.40 H PT INR D-Dimer Potassium 1.8 L* 2.0 L* Creatinine 1.4 H Glucose 109 H Magnesium 1.5 L Total Bilirubin 1.3 H AST 87 H ALT 81 H Alkaline Phosphatase 190 H NT-Pro-B Natriuret Pep Total Protein 5.6 L Globulin 1.8 L Procalcitonin 12/14/20 12/14/20 12/14/20 11:38 11:38 11:38 WBC RBC Hgb Hct RDW Plt Count Neut % (Auto) Lymph % (Auto) [place] % (Auto) Lymph # (Auto) [place] # (Auto) Eos # (Auto) PT 17.9 H INR 1.4 H D-Dimer > 20.0 H Potassium 3.2 L Creatinine 1.4 H Glucose 144 H Magnesium Total Bilirubin 1.2 H AST 104 H ALT 96 H Alkaline Phosphatase 230 H NT-Pro-B Natriuret Pep 273.1 H Total Protein Globulin 1.9 L Procalcitonin 0.46 H 12/14/20 11:38 WBC 177.7 H* RBC 3.83 L Hgb 11.6 L Hct 33.8 L RDW 17.2 H Plt Count 58 L Neut % (Auto) 3.0 L Lymph % (Auto) 96.0 H [place] % (Auto) 0 L Lymph # (Auto) [place] # (Auto) Eos # (Auto) PT INR D-Dimer Potassium Creatinine Glucose Magnesium Total Bilirubin AST ALT Alkaline Phosphatase NT-Pro-B Natriuret Pep Total Protein Globulin Procalcitonin Meds: Medications Acetaminophen (Acetaminophen 325 Mg Tablet) 650 mg PO Q6HP PRN; Protocol PRN Reason: Per Pain Protocol/Fever > 101 Last Admin: 12/15/20 21:57 Dose: 650 mg Documented by: Acyclovir (Acyclovir 400 Mg Tablet) 400 mg PO TIDP PRN; Protocol PRN Reason: Cold Sores Albuterol/Ipratropium (Ipratropium/Albuterol 3 Ml Ampul.Neb) 3 ml NEB Q4HRT PRN PRN Reason: Wheezing Allopurinol (Allopurinol 300 Mg Tablet) 300 mg PO DAILY MICHAEL Ceftriaxone Sodium (Ceftriaxone 1 Gm Vial) 1 gm IV DAILY MICHAEL; Protocol Last Admin: 12/15/20 10:18 Dose: 1 gm Documented by: Docusate Sodium (Docusate Sodium 100 Mg Capsule) 100 mg PO BID MICHAEL Last Admin: 12/15/20 20:30 Dose: 100 mg Documented by: Finasteride (Finasteride 5 Mg Tablet) 5 mg PO QDAY [facility] Guaifenesin (Guaifenesin/Dextromethorphan Oral Kelli) 10 ml PO Q4HP PRN PRN Reason: Cough Azithromycin 500 mg/ Dextrose 250 mls @ 250 mls/hr IV DAILY [facility]; Protocol Stop: 12/16/20 09:59 Last Infusion: 12/15/20 11:20 Dose: Infused Documented by: Piperacillin Sod/Tazobactam (Sod 3.375 gm/ Dextrose) 50 mls @ 100 mls/hr IV Q6H [facility]; Protocol Ibuprofen (Ibuprofen 600 Mg Tablet) 600 mg PO QIDP PRN; Protocol PRN Reason: Per Pain Protocol/Fever > 101 Last Admin: 12/14/20 23:14 Dose: 600 mg Documented by: Lisinopril (Lisinopril 20 Mg Tablet) 40 mg PO DAILY [facility] Morphine Sulfate (Morphine 4 Mg/Ml Vial) 4 mg IV Q4HP PRN; Protocol PRN Reason: Per Pain Protocol Ondansetron HCl (Ondansetron 4 Mg/2 Ml Vial) 4 mg IV Q6HP PRN PRN Reason: Nausea And Vomiting Oxycodone HCl (Oxycodone Hcl 5 Mg Tablet) 5 mg PO Q4HP PRN; Protocol PRN Reason: Per Pain Protocol Zanubrutinib 80 Mg (Capsule) 1 dose PO BID [facility] Last Admin: 12/15/20 20:30 Dose: 1 dose Documented by: Polyethylene Glycol (Polyethylene Glycol 3350 17 Gm Packet) 17 gm PO DAILYP PRN PRN Reason: Constipation Last Admin: 12/15/20 20:31 Dose: 17 gm Documented by: Senna (Sennosides 1 Tablet) 2 tab PO HS [facility] Last Admin: 12/15/20 20:30 Dose: 2 tab Documented by: Sodium Chloride (0.9 % Sodium Chloride 10 Ml Syringe) 10 ml IV Q8 [facility] Last Admin: 12/16/20 04:51 Dose: 10 ml Documented by: Trazodone HCl (Trazodone Hcl 50 Mg Tablet) 50 mg PO HSP PRN PRN Reason: Insomnia Vancomycin HCl (Vancomycin Per Pharmacy) 1 order IV UD [facility]; Protocol A/P Assessment and plan (1) Chronic lymphocytic leukemia: Status: Acute (2) Hypoxia: Status: Acute (3) Pneumonia: Status: Acute Qualifiers: Laterality: right Lung location: lower lobe of lung Pneumonia type: due to unspecified organism Qualified Code(s): J18.9 - Pneumonia, unspecified organism (4) Essential (primary) hypertension: Status: Acute (5) Lesion of spleen: Status: Acute (6) Anemia, normocytic normochromic: Status: Acute (7) Stage 1 acute kidney injury: Status: Acute (8) Hypokalemia: Status: Acute (9) Hypomagnesemia: Status: Acute Narrative A/P Narrative: 1. Right lower lobe pneumonia, community acquired: Transfer to inpatient ICU CoVID PCR NEGATIVE Switch to BiPAP ABG 30min after the switch to BiPAP CT angiogram chest to rule out pulmonary embolism given history of CLL Procalcitonin 0.46 elevated, suggesting underlying active infection, likely pneumonia Serial lactic acid Blood culture X2, no growth to date Sputum culture cbc w./ auto diff in the AM to trend WBC d/c Rocephin d/c Zithromax Start Vancomycin Start Zosyn Tylenol PRN fever Robitussin DM PRN cough Saline lock, given the fact that CXR shows vascular congestion and possible pulmonary edema 2. h/o CLL: Verify and continue chemotherapy Zanubrutinib Will talk to oncologist regarding treatment of CLL in face of acute infection 3. Splenomegaly and spleen lesion: As visualized by CT angiogram of the chest f/u MRI abdomen w/ contrast to better delineate the lesion--> postpone for now given clinical deterioration, will attempt when clinically stable Ibuprofen PRN mild pain Oxycodone PRN moderate pain Morphine IV PRN severe pain 4. anemia, normocytic normochromic: Likely associated with h/o CLL, see #2 cbc w/ auto diff in the AM, trend H/H; transfuse pRBC if hemoglobin <7.0, active bleeding, or symptomatic 5. h/o essential HTN: Currently hypertensive Resume oral antihypertensives from home regimen 6. Stage 1 Acute kidney injury: Saline lock, given the fact that CXR shows vascular congestion and possible pulmonary edema Avoid nephrotoxic agents Repeat CMP in the AM to trend kidney functions 7. Hypokalemia/hypomagnesemia: Potassium and Magnesium IV replacement Repeat serum potassium level this afternoon Repeat CMP and serum Mg level every morning and repeat replacement as needed GI ppx: not currently indicated DVT ppx: SCDs Code status: Full Prognosis: extremely guarded Disposition: inpatient ICU Critical Care Time: 1hr Time Spent With Patient Time: Total time spent is greater than 50% in coordination of care (as documented) at patient's floor/unit and/or counseling patient: QUALITY VTE Deep Vein Thrombosis/Pulmonary Embolism Present on Admission: No
[2020-12-16] MEDS ORDERED: guaiFENesin/DEXTROMETHORPHAN ORAL SOL PO PRN (08:10)
[2020-12-16] MEDS ORDERED: ACYCLOVIR 400 MG TABLET PO PRN (08:10)
[2020-12-16] MEDS ORDERED: IPRATROPIUM/ALBUTEROL 3 ML AMPUL.NEB NEB PRN (08:10)
[2020-12-16] MEDS ORDERED: ACETAMINOPHEN 325 MG TABLET PO PRN (08:10)
[2020-12-16] MEDS ORDERED: ONDANSETRON 4 MG/2 ML VIAL IV PRN (08:10)
[2020-12-16] MEDS ORDERED: oxyCODONE HCL 5 MG TABLET PO PRN (08:10)
[2020-12-16] MEDS ORDERED: morphine 4 MG/ML VIAL IV PRN (08:10)
[2020-12-16] MEDS ORDERED: POLYETHYLENE GLYCOL 3350 17 GM PACKET PO PRN (08:10)
[2020-12-16] MEDS ORDERED: traZODone HCL 50 MG TABLET PO PRN (08:10)
[2020-12-16] MEDS ORDERED: NAPROXEN 250 MG TABLET PO PRN (08:23)
[2020-12-16] MEDS: PIPERACILLIN SODIUM/TAZOBACTAM 3.375 GM in DEXTROSE 5% IN WATER 50 ML IV SCH ×2 (08:34→12:41)
[2020-12-16] MEDS ORDERED: ALLOPURINOL 300 MG TABLET PO SCH ×2 (09:00)
[2020-12-16] MEDS ORDERED: DOCUSATE SODIUM 100 MG CAPSULE PO SCH (09:00)
[2020-12-16] MEDS ORDERED: LISINOPRIL 20 MG TABLET PO SCH ×2 (09:00)
[2020-12-16] MEDS ORDERED: FINASTERIDE 5 MG TABLET PO SCH ×2 (09:00)
[2020-12-16] MEDS ORDERED: VANCOMYCIN 1,500 MG in 0.9 % SODIUM CHLORIDE 500 ML IV SCH (09:00)
[2020-12-16] MEDS ORDERED: ZANUBRUTINIB 80 MG PO SCH (09:00)
[2020-12-16] MEDS ORDERED: IOPAMIDOL 100 ML BOTTLE IV ONE (09:37)
--- NOTE | 2020-12-16 09:49 | Cat Scan Report ---
INDICATION: rule out PE COMPARISON: Previous examination dated 12/14/2020. Previous chest x-ray dated 12/16/2020 TECHNIQUE: Axial images obtained through the chest. 90ml Isovue 370 injected intravenously, and scanning was performed during pulmonary arterial phase. Sagittally and coronally reformatted images were obtained. MIP reformatted images. FINDINGS: Lungs:Lungs are poorly evaluated due to extensive respiratory motion. No parenchymal consolidation. There is a small left pleural effusion. Mediastinum, vascular:Main pulmonary artery, right pulmonary artery, left pulmonary artery are negative. No intraluminal filling defects. No lobar, segmental, or subsegmental emboli. Thoracic aorta is negative. No aneurysmal dilatation No pathologic mediastinal or hilar adenopathy Heart:No cardiomegaly. No pericardial effusion. There is calcified coronary artery disease Pleura:Small left pleural effusion. No right pleural effusion Axilla, supraclavicular regions, chest wall:Nonspecific axillary adenopathy bilaterally. Left axillary nodes appear to have normal benign morphology. There is a 20 mm right axillary lymph node without a well-defined hilum. This may be pathologic. No supraclavicular adenopathy. Musculoskeletal:Negative thoracic spine. No compression fracture. No lytic lesion. No rib or sternal lesions Upper Abdomen:Again demonstrated is splenomegaly. Spleen measures 16.3 cm in AP dimension and 9.0 cm in mediolateral dimension. Craniocaudal dimension is not measured as entire spleen is not included on this study. No other focal upper abdominal abnormality. Hematologic malignancy is possible. IMPRESSION: 1. Limited evaluation due to extensive respiratory motion 2. Negative pulmonary CTA. No pulmonary embolism 3. Small left pleural effusion 4. Splenomegaly 5. Mild axillary adenopathy, right worse than left 6. Coronary artery calcification The exam was performed using radiation dose optimization techniques including, but not limited to, automated exposure control, adjustment of the mA and/or kV according to patient size and use of iterative reconstruction technique. Interpreted and Authenticated by: Mg Carlson 12/16/20
[2020-12-16 10:03] LABS: ALT/SGPT 170 U/L (<40); AST/SGOT 220 U/L (<40); Albumin 3.9 gm/dL (3.2-5.2); Albumin/Globulin Ratio 2.3 (1.0-2.3); Alkaline Phosphatase 280 U/L (39-117); Blood Urea Nitrogen 11 mg/dL (8-23); Calcium 10.2 mg/dL (8.6-10.4); Carbon Dioxide 26 mmol/L (22-30); Chloride 103 mmol/L (96-108); Globulin 1.7 gm/dL (2.2-3.7); Glomerular Filtration Rate 31; Glucose 142 mg/dL (70-105)
[2020-12-16] MEDS ORDERED: POTASSIUM CHLORIDE 30 MEQ in DEXTROSE 5% IN WATER 500 ML IV ONE (10:30)
[2020-12-16 10:59] LABS: Hematocrit 26.8 % (41.0-55.0); Hemoglobin 8.8 g/dL (13.5-16.5); Mean Cell Volume 90.5 fL (80.0-100.0); Mean Corpuscular HGB Conc 32.8 g/dL (31.0-36.0); Platelet Count 52 K/mcL (140-440); RBC 2.96 M/mcL (4.50-5.90); Red Cell Distribution Width 18.6 % (11.5-14.5)
[2020-12-16] MEDS ORDERED: 0.9 % SODIUM CHLORIDE 10 ML SYRINGE IV SCH (14:00)
[2020-12-16] MEDS ORDERED: CASPOFUNGIN ACETATE 70 MG in 0.9 % SODIUM CHLORIDE 250 ML IV ONE (14:00)
[2020-12-16] MEDS ORDERED: METOPROLOL TARTRATE 5 MG/5 ML VIAL IV PRN (16:05)
[2020-12-16 16:51] LABS: ALT/SGPT 162 U/L (<40); AST/SGOT 193 U/L (<40); Albumin 3.9 gm/dL (3.2-5.2); Albumin/Globulin Ratio 1.9 (1.0-2.3); Alkaline Phosphatase 315 U/L (39-117); Bilirubin,Direct 2.3 mg/dL (<0.3); Bilirubin,Total 3.2 mg/dL (0.1-1.0); Blood Urea Nitrogen 14 mg/dL (8-23); Calcium 10.6 mg/dL (8.6-10.4); Carbon Dioxide 21 mmol/L (22-30); Chloride 104 mmol/L (96-108); Globulin 2.1 gm/dL (2.2-3.7); Glomerular Filtration Rate 28; Glucose 233 mg/dL (70-105); Lactate Dehydrogenase > 2500 U/L (135-225); Phosphorous 0.5 mg/dL (2.5-4.5); Triglycerides 127 mg/dL (<150)
[2020-12-16] MEDS ORDERED: MIDAZOLAM 5 MG/5 ML VIAL IV ONE (17:00)
[2020-12-16] MEDS ORDERED: ROCURONIUM 10 MG/ML ML IV ONE (17:00)
[2020-12-16] MEDS ORDERED: fentaNYL 2,500 MCG in 0.9 % SODIUM CHLORIDE 200 ML IV SCH (17:15)
[2020-12-16] MEDS ORDERED: PROPOFOL 1,000 MG in PREMIX 1 BAG IV SCH (17:15)
--- NOTE | 2020-12-16 18:15 | XRay Report ---
INDICATION: ET tube placement TECHNIQUE: AP supine chest x-ray COMPARISON: None FINDINGS:Endotracheal tube with its tip 3 cm above the gertrude Lungs:Bilateral central pulmonary parenchymal infiltrates. These appear new since previous examination. Follow-up radiographs recommended. Findings may be due to pneumonia or pulmonary edema Heart, vascular:No significant cardiomegaly. Pulmonary vascularity is normal. No pulmonary edema or pulmonary congestion Mediastinum, saige:No mediastinal widening. No hilar mass Pleura:No pleural fluid. No pleural-based mass or calcification Skeletal:Negative. IMPRESSION: 1. Endotracheal tube in appropriate position. 2. Bilateral parenchymal infiltrates may represent pulmonary edema or pneumonia Interpreted and Authenticated by: Mg Carlson 12/16/20
--- NOTE | 2020-12-16 18:18 | Death Note ---
Discharge Sum: Prov Provider Patient information: Note initiated : 12/16/20 at 6:12 pm Service Date, if different from initiated Date: [] Patient: Adonay Hdez 65 y/o M admitted on 12/14/20 for shortness of breath, left rib pain. Chief Complaint: [shortness of breath ] History of present illness: Mr. Hdez is a 65 year old M history of CLL and essential hypertension presenting with 4-day history of shortness of breath. Last episode of pneumonia was 1 and half years ago. Patient denies any recent travel or sick contact. Over the past 4 days, patient has gradual onset, gradually worsening shortness of breath. Patient have known productive cough. Patient is also committing of respiratory wheezings. Patient denies any fever or shaking chills. Patient is committing of general body weakness as well as decreased appetite over the same period of time. Patient is also coming off left upper quadrant abdominal pain, mild to moderate, with radiations to the left upper back. Denies any alleviating or exacerbating factors. 12/15/20: Afebrile overnight. Blood cultures no growth to date. CoVID PCR negative. Improving SOB. Productive cough with govea sputum with blood tinge. Denies fever or chills. Mild general body weakness. 12/16: Patient respiratory status deteriorated with increased work of breathing. High flow oxygen followed by BiPAP were provided. Patient eventually became unresponsive and unable to protect his airway. As such, the decision was made to intubate patient for airway protection and mechanical ventilation. Soon after being intubated, patient developed bradycardia, followed by asystole. As such, the decision was made to call tonja campbell at 1715. CPR was started and after 35min of CPR with 8 rounds of epinephrine and 4 rounds of Bicarb, return of spontaneous circulation was NOT able to be brought back. was pronounced at the bedside to the family. Primary care physician: Other Provider Consults: 12/15/20 07:40 Consult to Physician [CONS] Routine Comment: Consulting Provider: Ranjit Hathaway Reason For Exam: Physician to Consult Discharge Sum: Diag Contributing Factors (1) Chronic lymphocytic leukemia: (2) Hypoxia: (3) Pneumonia: (4) Essential (primary) hypertension: (5) Lesion of spleen: (6) Anemia, normocytic normochromic: (7) Stage 1 acute kidney injury: (8) Hypokalemia: (9) Hypomagnesemia: Discharge Sum: Summary Date and Time Date of admission: 12/14/20 16:24 Date of : 12/16/20 Time of : 17:50 Summary Details: 12/16: Patient respiratory status deteriorated with increased work of breathing. High flow oxygen followed by BiPAP were provided. Patient eventually became unresponsive and unable to protect his airway. As such, the decision was made to intubate patient for airway protection and mechanical ventilation. Soon after being intubated, patient developed bradycardia, followed by asystole. As such, the decision was made to call code blue at 1715. CPR was started and after 35min of CPR with 8 rounds of epinephrine and 4 rounds of Bicarb, return of spontaneous circulation was NOT able to be brought back. was pronounced at the bedside to the family. Additional Data Confirmation of as documented by pronouncing clinician: no pulse and no heart sounds Family: at bedside Attending/PCP notified?: Yes Attending physician: Ranjit Hathaway MD Was code activated?: Yes Autopsy requested?: No
[2020-12-16] MEDS ORDERED: SENNOSIDES 1 TABLET PO SCH (21:00)
[2020-12-16] MEDS ORDERED: EPINEPHrine 1 MG/10 ML (1:10,000) SYRINGE IV ONE (21:04)
[2020-12-16] MEDS ORDERED: ATROPINE SULFATE 1 MG/10 ML SYRINGE IV ONE (21:04)
[2020-12-16] MEDS ORDERED: CALCIUM CHLORIDE 1,000 MG/10 ML SYRINGE IV ONE (21:04)
[2020-12-17] MEDS ORDERED: PANTOPRAZOLE 40 MG VIAL IV SCH (09:00)
[2020-12-17] MEDS ORDERED: CASPOFUNGIN ACETATE 50 MG in 0.9 % SODIUM CHLORIDE 250 ML IV SCH (12:00)
== END 2020-12-16 21:05 | disposition expired ==
LOC: ED 11:09 → MEDSUR 16:24 → ICU 12-16 07:49
PROVIDERS: ADMIT Internal Medicine; ATTEND Internal Medicine